=== PATIENT | male | born 1955 | race Caucasian/White ===

== ENCOUNTER 2016-12-31 08:13 | Outpatient (CLI) | payer OTHER | END 2016-12-31 08:14 | disposition home or self-care (01) | DX: E11.9 Type 2 diabetes mellitus without complications (principal) ==

== ENCOUNTER 2017-04-01 07:56 | Outpatient (CLI) | payer OTHER ==
[2017-04-01 11:27] LABS: HEMOGLOBIN A1C 1.38 g/dL
== END 2017-04-01 07:57 | disposition home or self-care (01) ==
LOC: LAB.F 07:56
PROVIDERS: ATTEND Internal Medicine
DX: E11.65 Type 2 diabetes mellitus with hyperglycemia (principal)
CPT/HCPCS: 36415; 83036

== ENCOUNTER 2017-11-04 08:09 | Outpatient (CLI) | payer OTHER ==
[2017-11-04 11:41] LABS: BASOPHILS % (AUTO) 0.5 %; EOSINOPHILS # (AUTO) 0.2 10^3/uL (0.0-0.7); EOSINOPHILS % (AUTO) 4.8 %; HGB - HEMOGLOBIN 14.1 g/dL (14.0-18.0); LYMPHOCYTES % (AUTO) 40.3 %; MEAN CORPUSCULAR HGB CONC 35.4 g/dL (32.0-36.0); MEAN PLATELET VOLUME 7.7 fL (7.4-11.4); MONOCYTES # (AUTO) 0.4 10^3/uL (0.0-1.0); MONOCYTES % (AUTO) 9.1 %; NEUTROPHILS # (AUTO) 2.2 10^3/uL (1.5-6.6); NEUTROPHILS % (AUTO) 45.3 %; PLT - PLATELET COUNT 206 10^3/uL (130-450); RED BLOOD COUNT 4.28 10^6/uL (4.70-6.10); RED CELL DISTRIBUTION WIDTH 12.7 % (12.0-15.0); WHITE BLOOD COUNT 4.9 x10^3/uL (4.8-10.8)
[2017-11-04 11:57] LABS: ALBUMIN 4.1 g/dL (3.2-5.5); ALBUMIN/GLOBULIN RATIO 1.3 (1.0-2.2); ALKALINE PHOSPHATASE 21 IU/L (42-121); ALT ALANINE AMINOTRANSFERASE 39 IU/L (10-60); AST ASPARTATE AMINOTRANSFERASE 24 IU/L (10-42); BILIRUBIN,TOTAL 0.9 mg/dL (0.2-1.0); BUN - BLOOD UREA NITROGEN 24 mg/dL (6-20); CALCIUM 8.8 mg/dL (8.5-10.3); CARBON DIOXIDE - CO2 23 mmol/L (21-32); CHLORIDE 102 mmol/L (101-111); CHOL/HDL RATIO 4.1 (<5.0); CHOLESTEROL 149 mg/dL; CREATININE 0.9 mg/dL (0.6-1.2); GFR - MDRD 85 (>89); GLUCOSE 180 mg/dL (70-100); HDL CHOLESTEROL 36 mg/dL; LDL CHOLESTEROL,CALCULATED 64 mg/dL; LDL/HDL RATIO 1.8 (<3.6); SODIUM 136 mmol/L (135-145); TOTAL PROTEIN 7.3 g/dL (6.7-8.2); VLDL CHOLESTEROL 49 mg/dL
[2017-11-04 12:23] LABS: HB2 TOTAL 15.5 g/dL; HEMOGLOBIN A1C 0.99 g/dL
== END 2017-11-04 08:10 | disposition home or self-care (01) ==
LOC: LAB.F 08:09
PROVIDERS: ATTEND Internal Medicine
DX: E78.5 Hyperlipidemia, unspecified (principal); I10 Essential (primary) hypertension; E11.9 Type 2 diabetes mellitus without complications
CPT/HCPCS: 36415; 80053; 80061; 83036; 83721; 84443; 85025

== ENCOUNTER → 2018-08-09 | Outpatient (CLI) | payer OTHER | LOC: LAB.R 17:08 | PROVIDERS: ATTEND Physician Assistant Medical | DX: R30.0 Dysuria (principal) | CPT/HCPCS: 87086 ==

== ENCOUNTER 2019-05-18 08:03 | Outpatient (CLI) | payer OTHER ==
[2019-05-18 10:45] LABS: BASOPHILS % (AUTO) 0.4 %; EOSINOPHILS # (AUTO) 0.3 10^3/uL (0.0-0.7); EOSINOPHILS % (AUTO) 5.3 %; HGB - HEMOGLOBIN 14.5 g/dL (14.0-18.0); LYMPHOCYTES # (AUTO) 1.9 10^3/uL (1.5-3.5); LYMPHOCYTES % (AUTO) 37.5 %; MEAN CORPUSCULAR HEMOGLOBIN 33.6 pg (27.0-31.0); MEAN CORPUSCULAR HGB CONC 36.1 g/dL (32.0-36.0); MEAN CORPUSCULAR VOLUME 93.3 fL (80.0-94.0); MEAN PLATELET VOLUME 9.6 fL (7.4-11.4); MONOCYTES # (AUTO) 0.5 10^3/uL (0.0-1.0); MONOCYTES % (AUTO) 9.5 %; NEUTROPHILS # (AUTO) 2.4 10^3/uL (1.5-6.6); NEUTROPHILS % (AUTO) 46.9 %; PLT - PLATELET COUNT 217 10^3/uL (130-450); RED BLOOD COUNT 4.31 10^6/uL (4.70-6.10); RED CELL DISTRIBUTION WIDTH 12.3 % (12.0-15.0); WHITE BLOOD COUNT 5.1 x10^3/uL (4.8-10.8)
[2019-05-18 10:58] LABS: ALBUMIN 4.3 g/dL (3.2-5.5); ALBUMIN/GLOBULIN RATIO 1.4 (1.0-2.2); ALKALINE PHOSPHATASE 27 IU/L (42-121); ALT ALANINE AMINOTRANSFERASE 41 IU/L (10-60); AST ASPARTATE AMINOTRANSFERASE 26 IU/L (10-42); BILIRUBIN,TOTAL 0.6 mg/dL (0.2-1.0); BUN - BLOOD UREA NITROGEN 19 mg/dL (6-20); CALCIUM 8.9 mg/dL (8.5-10.3); CARBON DIOXIDE - CO2 22 mmol/L (21-32); CHLORIDE 103 mmol/L (101-111); CHOL/HDL RATIO 3.9 (<5.0); CHOLESTEROL 157 mg/dL; CREATININE 0.9 mg/dL (0.6-1.2); GFR - MDRD 85 (>89); GLUCOSE 210 mg/dL (70-100); HDL CHOLESTEROL 40 mg/dL; LDL CHOLESTEROL,CALCULATED 66 mg/dL; LDL/HDL RATIO 1.7 (<3.6); SODIUM 136 mmol/L (135-145); TOTAL PROTEIN 7.3 g/dL (6.7-8.2); VLDL CHOLESTEROL 51 mg/dL
== END 2019-05-18 08:04 | disposition home or self-care (01) ==
LOC: LAB.S 08:03
PROVIDERS: ATTEND Family Medicine
DX: E78.5 Hyperlipidemia, unspecified (principal); I10 Essential (primary) hypertension; E11.9 Type 2 diabetes mellitus without complications
CPT/HCPCS: 36415; 80053; 80061; 83721; 84443; 85025

== ENCOUNTER 2019-06-01 08:00 | Outpatient (CLI) | payer OTHER ==
[2019-06-01 10:49] LABS: HB2 TOTAL 15.6 g/dL; HEMOGLOBIN A1C 1.06 g/dL; HEMOGLOBIN A1C % 8.4 % (4.6-6.2)
== END 2019-06-01 08:01 | disposition home or self-care (01) ==
LOC: LAB.S 08:00
PROVIDERS: ATTEND Family Medicine
DX: E11.9 Type 2 diabetes mellitus without complications (principal)
CPT/HCPCS: 36415; 83036

== ENCOUNTER 2019-10-18 10:12 | Outpatient (CLI) | payer MEDICARE, OTHER | END 2019-10-18 10:13 | disposition home or self-care (01) | LOC: DI 10:12 | PROVIDERS: ATTEND Physician Assistant | DX: R01.1 Cardiac murmur, unspecified (principal); I51.7 Cardiomegaly | CPT/HCPCS: 93306 ==

== ENCOUNTER 2020-08-22 11:40 | Outpatient (CLI) | payer MEDICARE | END 2020-08-22 11:41 | disposition home or self-care (01) | LOC: COV 11:40 | PROVIDERS: ATTEND Family Medicine | DX: Z20.828 Contact with and (suspected) exposure to other viral communicable diseases (principal) ==

== ENCOUNTER 2022-03-21 08:57 | Outpatient (CLI) | payer MEDICARE ==
[2022-03-21 21:22] LABS: ESTIMATED AVERAGE GLUCOSE 214 mg/dL (70-100); HEMOGLOBIN A1c% 9.1 % (4.27-6.07)
== END 2022-03-21 08:58 | disposition home or self-care (01) ==
LOC: LAB.S 08:57
PROVIDERS: ATTEND Nurse Practitioner Family
DX: E11.21 Type 2 diabetes mellitus with diabetic nephropathy (principal)
CPT/HCPCS: 36415; 83036

== ENCOUNTER 2022-09-24 15:18 | Outpatient (CLI) | payer MEDICARE ==
--- NOTE | 2022-09-24 19:50 | Ultrasound Report ---
PROCEDURE: Pelvic Limited or F/U INDICATIONS: GROIN MASS, LUMBAR RADICULOPATHY TECHNIQUE: Real-time transabdominal scanning was performed of the right inguinal canal, with image documentation . COMPARISON: None. FINDINGS: A fat-containing right inguinal hernia is seen. Bowel wall defect measures 1.9 x 1.9 cm in diameter. IMPRESSION: Fat-containing right inguinal hernia. Reviewed by: Abimael Kaur MD on 09/24/2022 7:49 PM PST Approved by: Abimael Kaur MD on 09/24/2022 7:49 PM PST Station ID: [id number]
--- NOTE | 2022-09-25 11:09 | MRI Report ---
PROCEDURE: LUMBAR SPINE WO INDICATIONS: GROIN MASS, LUMBAR RADICULOPATHY TECHNIQUE: Noncontrast sagittal T1 spin echo and T2 fast echo, sagittal STIR, axial T1 and T2 fast spin echo thr ough the lumbar spine. In cases with scoliosis, additional coronal T2 fast spin echo may be performe d. COMPARISON: Plain films dated 05/30/2022 FINDINGS: Image quality: Excellent. Alignment and Curvature: 5 lumbar type vertebral bodies are present by plain film. Roughly 4 mm retro listhesis of L2 on L3. 2 mm of retrolisthesis of L3 on L4 and L4 on L5. Bone Marrow: Marrow is of normal overall signal. No acute vertebral body compression fractures. Mi ld reactive signal throughout the endplates of the thoracolumbar spine. Spinal Cord: Conus medullaris terminates at the upper L2 level. Visualized cord demonstrates normal signal and size. Paraspinous Soft Tissues: No paravertebral masses. T12-L1: Normal in appearance. L1-L2: Mild disc height loss and desiccation in addition to mild diffuse disc bulge. Mild facet an d ligament flavum hypertrophy. Mild canal stenosis. Mild bilateral foraminal stenosis. L2-L3: Moderate disc desiccation. Mild disc height loss and diffuse disc bulge with small superimp osed broad-based left posterolateral protrusion. Mild facet and ligament flavum hypertrophy. Mild epi dural lipomatosis. Moderate canal stenosis. Moderate bilateral foraminal stenosis. L3-L4: Moderate disc desiccation. Mild disc height loss and diffuse disc bulge with superimposed ri ght far lateral protrusion. Mild facet and ligament flavum hypertrophy. Mild epidural lipomatosis. Se jone canal stenosis. Severe right and moderate to severe left foraminal stenosis. Right greater than left L3 nerve root compression. L4-L5: Mild disc height loss and desiccation. Mild diffuse disc bulge. Mild facet and ligament flav um hypertrophy. Mild canal stenosis. Moderate subarticular foraminal stenosis bilaterally. L5-S1: Mild disc desiccation and diffuse disc bulge. Mild bilateral facet hypertrophy. Mild canal s tenosis. Mild bilateral foraminal stenosis. IMPRESSION: 1. Multilevel degenerative disc and facet disease, in addition to epidural lipomatosis and ligamentum flavum hypertrophy. 2. Multilevel canal stenoses, worst at L3-L4 where there is severe canal stenosis. Moderate canal alfreda nosis at L2-L3. 3. Multilevel foraminal stenoses, worst at L3-L4 where there is associated intraforaminal nerve root compression. Recommend correlation with clinical symptoms to ascertain relevance of this finding. Reviewed by: Danica Rayo MD on 09/25/2022 10:08 AM [facility] Approved by: Danica Rayo MD on 09/25/2022 10:08 AM [facility] Station ID: [id number]
== END 2022-09-24 15:19 | disposition home or self-care (01) ==
LOC: DI 15:18
PROVIDERS: ATTEND Nurse Practitioner Family
DX: M51.36 Other intervertebral disc degeneration, lumbar region (principal); M48.061 Spinal stenosis, lumbar region without neurogenic claudication; M47.26 Other spondylosis with radiculopathy, lumbar region; M51.37 Other intervertebral disc degeneration, lumbosacral region; M48.07 Spinal stenosis, lumbosacral region; M47.817 Spondylosis without myelopathy or radiculopathy, lumbosacral region; K40.90 Unilateral inguinal hernia, without obstruction or gangrene, not specified as recurrent

== ENCOUNTER 2022-10-16 09:11 | Day surgery (SDC) | payer MEDICARE ==
[~2022-10-16 09:11] MED LIST: BUPIVACAINE 0.25% PF 30 ML VIAL ONE
[2022-10-16] MEDS ORDERED: LACTATED RINGERS 1,000 ML IV ONE ×3 (09:17→13:15)
[2022-10-16] MEDS ORDERED: CEFAZOLIN 2G/50ML 0.9% NS 2 GM/50 ML BAG IV ONE (09:22)
--- NOTE | 2022-10-16 10:10 | ANESTHESIA ---
Pre-Anesthesia VS, & Labs - Diagnosis right inguinal hernia - Procedure laparoscopic inguinal hernia repair right, possible left Vital Signs: Temp Pulse Resp BP Pulse Ox O2 Flow Rate 36.2 C L 80 16 139/84 H 97 10/16/22 09:27 10/16/22 09:27 10/16/22 09:27 10/16/22 09:27 10/16/22 09:27 Height: 5 ft 10 in Weight (kg): 109 kg Body Mass Index: 34.4 BMI Classification: Obese - NPO >8 hours - Lab Results Current Lab Results: Laboratory Tests 10/16/22 09:40: POC Whole Bld Glucose 200 H Home Medications and Allergies Aspirin 81 mg ORAL DAILY 05/16/15 Atorvastatin [Lipitor] 10 mg ORAL DAILY 05/16/15 Telmisartan [Micardis] 40 mg ORAL DAILY 05/16/15 metFORMIN [Glucophage] 1,000 mg ORAL BID 05/16/15 Insulin Glargine [Lantus Solostar] 72 units SUBQ DAILY 04/29/17 Allergies/Adverse Reactions: Allergies Allergy/AdvReac Type Severity Reaction Status Date / Time No Known Drug Allergies Allergy Verified 05/16/15 13:18 Anes History & Medical History - Anesthetic History Anesthesia Complications: reports: No previous complications - Medical History Cardiovascular: reports: Murmur, Valve disorder (Mitral regurg, mild. aortic sclerosis per echo) Pulmonary: reports: Sleep apnea Gastrointestinal: reports: None Urinary: reports: None Musculoskeletal: reports: Osteoarthritis, Chronic back pain Endocrine/Autoimmune: reports: Type 2 diabetes Skin: reports: None Smoking Status: Never smoker History of Cancer?: No - Surgical History General: reports: Colonoscopy, Other Eyes Ears Nose Throat (EENT): reports: Other Exam General: Alert, Oriented x3 Mouth Opening: Greater than 4 Fingerbreadths Mallampati classification: II Thyromental Distance: greater than 6 cm Respiratory: Lungs clear Cardiovascular: Regular rate Plan Anesthesia Type: General Consent for Procedure(s) Verified and Reviewed: Yes Code Status: Attempt Resuscitation ASA classification: 2-Mild systemic disease Is this case an emergency?: No
[2022-10-16] MEDS ORDERED: fentaNYL 100 MCG/2 ML VIAL IVP PRN (10:13)
[2022-10-16] MEDS ORDERED: HYDROmorphone 0.5 MG/0.5 ML SYRINGE IVP PRN (10:13)
[2022-10-16] MEDS ORDERED: ONDANSETRON 4 MG/2 ML VIAL IVP PRN ×2 (10:13→13:04)
[2022-10-16] MEDS ORDERED: ePHEDrine 50 MG/ML VIAL IVP PRN (10:13)
[2022-10-16] MEDS ORDERED: METOCLOPRAMIDE 10 MG/2 ML VIAL IVP PRN (10:13)
[2022-10-16] MEDS ORDERED: NALOXONE 0.4 MG/ML VIAL IVP PRN (10:13)
[2022-10-16] MEDS ORDERED: MORPHINE 2 MG/ML CARPUJECT IVP PRN (10:13)
[2022-10-16] MEDS ORDERED: ATROPINE ABBOJECT 1 MG/10 ML SYRINGE IVP PRN (10:13)
[2022-10-16] MEDS ORDERED: PROPOFOL 200 MG/20 ML VIAL IVP ONE (10:17)
[2022-10-16] MEDS ORDERED: ROCURONIUM 50 MG/5 ML VIAL ONE ×2 (10:17→11:32)
[2022-10-16] MEDS ORDERED: MIDAZOLAM 2 MG/2 ML VIAL ONE (10:22)
[2022-10-16] MEDS ORDERED: BUPIVACAINE 0.25% PF 30 ML VIAL SUBQ ONE ×2 (10:54)
[2022-10-16] MEDS ORDERED: LACTATED RINGERS 1,000 ML IV SCH (11:00)
[2022-10-16] MEDS ORDERED: SEVOFLURANE 250 ML LIQUID INH ONE (11:03)
[2022-10-16] MEDS ORDERED: ACETAMINOPHEN 1,000 MG/100 ML 1,000 MG/100 ML BAG IV ONE (11:10)
[2022-10-16] MEDS ORDERED: SUGAMMADEX 200 MG/2 ML VIAL IVP ONE (12:39)
[2022-10-16] MEDS ORDERED: HYDROcod/ACETAM 5/325 MG TABLET PO PRN (13:04)
--- NOTE | 2022-10-16 13:10 | OPERATIVE REPORT ---
Operative Report - General Procedure Date: 10/16/22 Planned Procedure: lap bilateral inguinal hernia repair Pre-Op Diagnosis: recurrent bilateral inguinal hernias Procedure Performed: lap bilateral inguinal hernia repair Post Op Diagnosis: recurrent bilateral inguinal hernias, direct - Procedure Note Primary Surgeon: jessica gonzalez Anesthesia Technique: General ET tube Pathology: none Estimated Blood Loss (mL): 3 Drain/Tube Type: Other (none) Indications: bilateral inguinal hernias Findings: as above Complications: none - Other Other Information/Narrative: The patient was prepped identified brought to the operating room and placed in supine position. Sequential compression devices were placed. General endotracheal anesthesia was induced. Alcazar catheter was placed. He was prepped and draped in a sterile fashion and given preoperative antibiotics. Local anesthetic was given to the operative area. A 3 cm infraumbilical incision was made. A 2 and half centimeter incision was made on the fascia just right lateral of midline. The preperitoneal space was developed with digital blunt dissection. A Cortes trocar was placed and secured with 3 interrupted 0 Vicryl sutures. The preperitoneal space was further developed using the scope. In midline two 5 mm trochars were placed. The right inguinal hernia was first approached. The preperitoneal space was further developed. The peritoneum was further brought down. There was no indirect inguinal hernia. The inferior epigastrics were kept along the abdominal wall. The patient had a direct inguinal hernia. The left side was then approached. Dissection proceeded in a similar fashion. A pocket was created on both sides to allow for large preformed mesh. Bard large preformed mesh was placed bilaterally and secured at the pubic tubercle along Dar's ligament and anteriorly under the rectus musculature. The mesh lay in good position. CO2 was evacuated and trochars removed under vision. Fascia at the periumbilical area was closed with a total of 4 interrupted 0 Vicryl sutures. Skin was closed with a running 4-0 Monocryl subcuticular suture. Dressings were applied. The Alcazar catheter was removed. The patient tolerated the procedure well was awakened and brought to recovery in good condition.
[2022-10-16] MEDS ORDERED: HYDROcod/ACETAM 5/325 MG TABLET ONE (13:49)
[2022-10-16 15:11] VITALS: BP 126/72
--- NOTE | 2022-10-16 15:56 | ANESTHESIA POST OP EVALUATION ---
Anesthesia Post Eval - Post Anesthesia Eval Vitals: Last Vital Signs Temp 36.4 C L 10/16/22 15:00 Pulse 73 10/16/22 15:00 Resp 16 10/16/22 15:00 BP 126/72 10/16/22 15:00 Pulse Ox 97 10/16/22 15:00 O2 Flow Rate CV Function Including HR & BP: Stable Pain Control: Satisfactory Nausea & Vomiting: Negative Mental Status: Baseline Respiratory Status: Airway Patent Hydration Status: Satisfactory Anesthesia Complications: None
== END 2022-10-16 09:12 | disposition home or self-care (01) ==
LOC: SDS 09:11
PROVIDERS: ATTEND Surgery
DX: K40.21 Bilateral inguinal hernia, without obstruction or gangrene, recurrent (principal); E66.9 Obesity, unspecified; Z68.34 Body mass index [BMI] 34.0-34.9, adult; E11.9 Type 2 diabetes mellitus without complications; G47.30 Sleep apnea, unspecified; Z79.4 Long term (current) use of insulin; Z79.84 Long term (current) use of oral hypoglycemic drugs
CPT/HCPCS: 49651; A9270; C1781; J0131; J0690; J3490; J7120

== ENCOUNTER 2023-12-11 13:41 | Outpatient (CLI) | payer MEDICARE ==
[~2023-12-11 13:41] MED LIST changes: -BUPIVACAINE 0.25% PF 30 ML VIAL ONE; +GADOTERATE MEGLUMINE 10 MMOL/20 ML VIAL ONE; +GADOTERATE MEGLUMINE 5 MMOL/10 ML VIAL ONE
[2023-12-11] MEDS: GADOTERATE MEGLUMINE 10 MMOL/20 ML VIAL IVP ONE (14:39)
--- NOTE | 2023-12-12 15:15 | MRI Report ---
PROCEDURE: Lumbar Spine W/WO INDICATIONS: LOW BACK PAIN CONTRAST: CLARISCAN 20.8 ml TECHNIQUE: Noncontrast sagittal T1 spin echo and T2 fast spin echo, sagittal STIR, axial T1 and T2 fast spin ech o through the lumbar spine. In cases with scoliosis, additional coronal T2 fast spin echo may be per formed. After the administration of contrast, sagittal and axial T1 spin echo with fat saturation th rough the lumbar spine. COMPARISON: MRI lumbar spine 09/24/2022 FINDINGS: Image quality: Excellent. Alignment and curvature: There is trace retrolisthesis of L2 on L3, L3 on L4, L4 on L5. Marrow: Marrow is of normal overall signal. Increased T1 and T2 signal is present at L1 most consis tent with hemangioma, unchanged. No acute vertebral body compression fractures. No suspicious marrow enhancement. Spinal cord: Conus medullaris terminates at the L1 level. Visualized spinal cord demonstrates clarke l signal, without suspicious enhancement. Paraspinous soft tissues: No paravertebral masses or abnormal enhancement. Discs Multilevel mild to moderate disc desiccation most severe at L2-3, L3-4. T12-L1: No disc bulge, spinal stenosis or foraminal narrowing. L1-L2: Mild disc bulge with mild spinal stenosis. Mild bilateral foraminal narrowing with facet an d ligamentum flavum hypertrophy unchanged. L2-L3: Mild disc bulge with minimal spinal stenosis improved compared to prior exam. Previous left posterior protrusion is not well seen. Postsurgical changes are present. Moderate bilateral foramina l narrowing, right. On left, unchanged. L3-L4: Mild disc bulge with trace spinal stenosis improved compared to prior exam. Severe right and moderate to severe left foraminal stenosis relatively unchanged with bilateral right greater than le ft L3 nerve root compression. Postsurgical changes are present. L4-L5: Mild disc bulge with mild spinal stenosis, unchanged. Moderate left foraminal narrowing as w ell as mild to moderate foraminal narrowing to the subarticular recesses relatively stable. L5-S1: Minimal disc bulge without spinal stenosis. Minimal to mild bilateral foraminal narrowing, l eft greater than right. No interval change. IMPRESSION: Postsurgical changes reflecting improved appearance of previous spinal stenosis at L2-3 and L3-4. Multilevel foraminal narrowing most severe at L3-4 as above. Reviewed by: Shyanne Rivero MD on 12/12/2023 3:14 PM PST Approved by: Shyanne Rivero MD on 12/12/2023 3:14 PM PST Station ID: [id number]
== END 2023-12-11 13:42 | disposition home or self-care (01) ==
LOC: DI 13:41
PROVIDERS: ATTEND Orthopaedic Surgery
DX: M48.061 Spinal stenosis, lumbar region without neurogenic claudication (principal); M48.07 Spinal stenosis, lumbosacral region; M51.16 Intervertebral disc disorders with radiculopathy, lumbar region; M47.26 Other spondylosis with radiculopathy, lumbar region; M51.37 Other intervertebral disc degeneration, lumbosacral region; M47.817 Spondylosis without myelopathy or radiculopathy, lumbosacral region
CPT/HCPCS: 72158; A9575